=== PATIENT | male | born 1990 ===

== ENCOUNTER 2022-01-20 18:07 | Emergency (ER) | payer SELFPAY ==
[2022-01-20] MEDS ORDERED: Morphine 4 MG/ML VIAL IM ONE (18:11)
[2022-01-20] MEDS ORDERED: Diphtheria,Pertussis(Acell),Tetanus Vaccine 0.5 ML Syringe IM ONE (18:11)
[2022-01-20] MEDS ORDERED: Ondansetron 4 MG Tab.DIS PO ONE (18:11)
[2022-01-20] MEDS ORDERED: Lidocaine 1% 5 ML VIAL INJECT ONE (19:51)
== END 2022-01-20 20:52 | disposition home or self-care (01) ==
LOC: MW.ED 18:07
DX: S61.210A Laceration without foreign body of right index finger without damage to nail, initial encounter (principal); S61.212A Laceration without foreign body of right middle finger without damage to nail, initial encounter; S61.214A Laceration without foreign body of right ring finger without damage to nail, initial encounter; Z23 Encounter for immunization; W29.3XXA Contact with powered garden and outdoor hand tools and machinery, initial encounter
CPT/HCPCS: 12002; 73120; 90471; 90715; 96372; 99283; A9270; J2270; 99282